=== PATIENT | female | born 1960 | race Caucasian/White ===

== ENCOUNTER 2017-03-21 23:27 | Emergency (ER) | payer OTHER ==
[~2017-03-21] VITALS: Ht 172.7 cm; Wt 120.7 kg
[2017-03-21] MEDS ORDERED: AMLO1CAP6 PO (23:49)
[2017-03-21] MEDS ORDERED: CHEMO (23:49)
[2017-03-21] MEDS ORDERED: SERT25TA PO (23:49)
[2017-03-21] MEDS ORDERED: METOPROLOL TARTRATE 25 MG PO (23:49)
[2017-03-21] MEDS ORDERED: OMEP20TA62 PO (23:49)
[2017-03-21] MEDS ORDERED: SERT50TA PO (23:49)
[2017-03-21] MEDS ORDERED: ADENOSINE 6 MG/2 ML ONE (23:51)
[2017-03-22] MEDS ORDERED: DILTIAZEM 5 MG/ML, 5ML IVPush ONE
[2017-03-22] MEDS ORDERED: SODIUM CHLORIDE 0.9% 1,000ML IVBOLUS ONE
[2017-03-22] MEDS ORDERED: DILTIAZEM 5 MG/ML, 5ML ONE (00:10)
[2017-03-22 00:29] LABS: BLOOD UREA NITROGEN 22 mg/dL (7-18)
[2017-03-22 00:35] LABS: IS PT STATUS REG ER OR PRE ER? YES
[2017-03-22 01:16] VITALS: BP 132/74
== END 2017-03-22 01:18 | disposition home or self-care (01) ==
LOC: ED 23:59
DX: R00.2 Palpitations (principal); C50.919 Malignant neoplasm of unspecified site of unspecified female breast; R00.0 Tachycardia, unspecified; I10 Essential (primary) hypertension; Z87.891 Personal history of nicotine dependence
CPT/HCPCS: 36415; 71010; 80048; 82040; 83735; 84443; 84484; 85025; 93005; 96361; 96374; 99285; J7030